=== PATIENT | male | born 1980 | race Two or more races ===

== ENCOUNTER 2025-03-16 04:58 | Emergency (ER) | payer MEDICAID, SELFPAY ==
[2025-03-16 05:02] VITALS: BMI 24.3
[2025-03-16 05:12] VITALS: BP 147/88; PULSE 68; RESP 17; TEMP 36.5; O2SAT 99
--- NOTE | 2025-03-16 05:18 | PC.NURSE ---
[facility] CONTACTED AT THIS TIME AND LOG NUMBER [id number].
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
[2025-03-16 06:22] VITALS: BP 134/85; PULSE 58; RESP 18; TEMP 36.7; O2SAT 96
[2025-03-16] MEDS: ACETAMINOPHEN 325 MG TABLET 650 MG PO (06:28)
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
[2025-03-16 10:04] VITALS: BP 146/87; PULSE 55; RESP 16; TEMP 36.7; O2SAT 100
== END 2025-03-16 10:05 | disposition home or self-care (01) ==
PROVIDERS: Emergency Provider Emergency Medicine
DX: S13.9XXA Sprain of joints and ligaments of unspecified parts of neck, initial encounter (principal); S20.219A Contusion of unspecified front wall of thorax, initial encounter; S09.90XA Unspecified injury of head, initial encounter; S49.91XA Unspecified injury of right shoulder and upper arm, initial encounter; V89.9XXA Person injured in unspecified vehicle accident, initial encounter
CPT/HCPCS: 70450; 71260; 72125; 73060; 74177; 99285; A4649; Q9967; A9270